=== PATIENT | female | born 1940 | race Caucasian/White ===

== ENCOUNTER 2017-06-23 04:09 | Inpatient (IN) | payer MEDICARE, MEDICAID ==
[~2017-06-23] VITALS: Ht 170.1 cm; Wt 78.0 kg
--- NOTE | ~2017-06-23 | CON ---
[place], [place] REPORT OF CONSULTATION NAME: JAZMIN STERN UNIT #: [id number] ROOM: 420 DOCTOR: CYNTHIA DESAI MD BIRTHDATE: [birth year] DOS: 06/23/2017 PSYCHIATRIC CONSULTATION CHIEF COMPLAINT: "They were trying to kill me; I needed to get out of there." HISTORY OF PRESENT ILLNESS: This is a 76-year-old white female who is a resident of the [facility]. The patient was to be admitted to the [facility], but was sent to the ER for medical clearance and was found to have significant cardiac issues and shortness of breath. The patient reports from psychiatric standpoint that she has resided at the [facility] for the last 3 years, but most recently in the last several months, she has felt that somebody is out to kill her. She feels that they are going to poison her or hurt her in some way. She has not been eating or drinking or taking all of her medications because of this and has been calling 911 frequently. On the date of admission, she did call 911 and EMS did help bring her into the hospital for further evaluation and treatment. The patient reports a lengthy history of schizoaffective disorder versus major depression, recurrent with psychotic features and has had at least 4 other breaks where she has been hospitalized psychiatrically. She follows with Dr. Fitzgerald at that particular facility. MENTAL STATUS: She is alert and oriented with time gaps. Mood does seem to be depressed with anxious overtones and there is a great deal of paranoia present. She is very forthcoming and very engaging and is very much looking to get help. She is open to going to the psychiatric unit. Memory shows some gaps. DIAGNOSIS: Major depression, recurrent with psychotic features. PLAN: I will go ahead and discontinue her Risperdal as this does tend to exacerbate Parkinson's symptoms rather nastily. I will utilize Seroquel 25 mg at bedtime as an antipsychotic, maintain Exelon patch, but plan to increase as needed and as tolerated. I will augment eventually with Namenda. I will add Remeron 15 mg at bedtime as an antidepressant. I may attempt to discontinue her Depakote and her Wellbutrin later. I do believe she is an excellent candidate to go to the [facility] when she is medically stable. CYNTHIA DESAI MD CM:CONSTR:REPORT OF CONSULTATION 06/23/17 0955 interface
[2017-06-23 04:09] VITALS: BP 143/64
[2017-06-23] MEDS ORDERED: AMIODARONE HCL400 MG PO (04:25)
[2017-06-23] MEDS ORDERED: BUDEPRION XL150 MG PO (04:26)
[2017-06-23] MEDS ORDERED: DIGOX125 MCG PO (04:27)
[2017-06-23] MEDS ORDERED: EXELON1 EAC1 T (04:27)
[2017-06-23] MEDS ORDERED: MELATONIN3 MG PO (04:28)
[2017-06-23] MEDS ORDERED: LATANOPROST2.5 ML OP (04:28)
[2017-06-23] MEDS ORDERED: DAILY VALUE1 EACH PO (04:30)
[2017-06-23] MEDS ORDERED: PROSOURCE PLUS887 ML PO (04:31)
[2017-06-23] MEDS ORDERED: RISPERDAL0.25 MG PO ×2 (04:32→04:35)
[2017-06-23] MEDS ORDERED: DIVALPROEX SOD500 MG PO (04:35)
[2017-06-23] MEDS ORDERED: SPIRONOLACTONE50 M1 PO (04:35)
[2017-06-23] MEDS ORDERED: ELIQUIS2.5 M1 PO (04:36)
[2017-06-23] MEDS ORDERED: METOPROLOL TART50 M1 PO (04:36)
[2017-06-23] MEDS ORDERED: NEURONTIN300 MG PO (04:37)
[2017-06-23] MEDS ORDERED: MIDODRINE HCL5 M1 PO (04:37)
[2017-06-23] MEDS ORDERED: SINEMET 25-2501 EACH PO (04:38)
[2017-06-23] MEDS ORDERED: HYDROCODONE-AC1 EAC1 PO (04:39)
[2017-06-23] MEDS ORDERED: ACETAMINOPHEN325 M2 PO (04:40)
[2017-06-23] MEDS ORDERED: ONDANSETRON HYDR4 MG PO (04:40)
[2017-06-23 04:58] LABS: BASO # 0.1 10*3/uL (0.0-0.1); EOS # 0.1 10*3/uL (0.0-0.4); EOS % 0.9 % (1.0-4.0); HEMATOCRIT 39.8 % (37.0-47.0); LYMPH % 10.9 % (27.0-41.0); MEAN CELL VOLUME 101.3 fl (81.0-99.0); MEAN CORPUSCULAR HGB 33.1 pg (27.0-31.0); MEAN CORPUSCULAR HGB CONC 32.7 g/dl (33.0-37.0); MEAN PLATELET VOLUME 11.3 fl (9.6-12.3); MONO # 1.2 10*3/uL (0.1-1.0); MONO % 13.7 % (3.0-9.0); NEUT # 6.1 10*3/uL (2.3-7.9); NEUT % 70.6 % (47.0-73.0); PLATELET COUNT AUTOMATED 258 10*3/uL (130-400); RED BLOOD COUNT 3.93 10*6/uL (4.10-5.10); RED CELL DISTRI WIDTH 13.2 % (0-14.5); WHITE BLOOD COUNT 8.7 10*3/uL (4.8-10.8)
[2017-06-23 05:09] LABS: ACT PARTIAL THROMBO TIME 21.7 SECONDS (20.8-31.5); INTERNATIONAL NORM RATIO 0.9 (2.0-3.5)
[2017-06-23 05:17] LABS: ALBUMIN 2.6 gm/dl (3.1-4.5); ALKALINE PHOSPHATASE 53 U/L (45-117); BUN 13 mg/dl (7-24); CHLORIDE 101 mmol/L (98-107); CREATININE 0.96 mg/dL (0.55-1.02); POTASSIUM 4.8 mmol/L (3.5-5.1); SGOT/AST 26 IU/L (3-35); SGPT/ALT 21 U/L (12-78); SODIUM 137 mmol/L (136-145); TOTAL PROTEIN 6.8 gm/dL (6.4-8.2); TROPONIN I 0.018 ng/ml (<0.045)
[2017-06-23 05:28] LABS: ACETAMINOPHEN (TYLENOL) < 2.0 ug/ml (10-30); DIGOXIN 1.23 ng/ml (0.8-2.0); ETHYL ALCOHOL < 3.0 mg/dl (<3)
[2017-06-23 07:13] LABS: URINE AMPHETAMINES < 1000 (1000ng/ml); URINE BARBITURATES < 200 (200ng/ml); URINE BENZODIAZEPINES < 200 (200ng/ml); URINE CANNABINOIDS (THC) < 50 (50ng/ml); URINE COCAINE < 300 (300ng/ml); URINE METHADONE < 300 (300ng/ml); URINE OPIATES < 300 (300ng/ml)
[2017-06-23 07:14] LABS: URINE PHENCYCLIDINE < 25 (25ng/ml)
[2017-06-23 08:35] VITALS: BP 96/64
[2017-06-23 10:05] LABS: BILIRUBIN NEGATIVE (NEGATIVE); BLOOD NEGATIVE (NEGATIVE); CLARITY CLEAR (CLEAR); COLOR YELLOW (YELLOW); GLUCOSE NEGATIVE (NEGATIVE); KETONE NEGATIVE (NEGATIVE); LEUKO ESTERASE 1+ (NEGATIVE); NITRITE NEGATIVE (NEGATIVE); PH 7.5 (5.0-9.0); UROBILINOGEN 0.2 E.U./dl (0.2-1.0)
[2017-06-23 10:13] LABS: BACTERIA 1+
[2017-06-23 12:00] VITALS: BP 134/54
[2017-06-23 16:00] VITALS: BP 115/61
[2017-06-23 20:03] VITALS: BP 115/52
[2017-06-24 00:12] VITALS: BP 119/60
[2017-06-24 07:06] LABS: BASO # 0.1 10*3/uL (0.0-0.1); BASO % 1.3 % (0.0-1.0); EOS # 0.2 10*3/uL (0.0-0.4); EOS % 2.5 % (1.0-4.0); HEMATOCRIT 40.2 % (37.0-47.0); HEMOGLOBIN 12.8 g/dl (12.0-16.0); LYMPH % 15.7 % (27.0-41.0); MEAN CORPUSCULAR HGB 32.2 pg (27.0-31.0); MEAN CORPUSCULAR HGB CONC 31.8 g/dl (33.0-37.0); MEAN PLATELET VOLUME 11.3 fl (9.6-12.3); MONO # 0.7 10*3/uL (0.1-1.0); MONO % 11.1 % (3.0-9.0); NEUT # 4.2 10*3/uL (2.3-7.9); PLATELET COUNT AUTOMATED 269 10*3/uL (130-400); RED BLOOD COUNT 3.98 10*6/uL (4.10-5.10); RED CELL DISTRI WIDTH 13.5 % (0-14.5); WHITE BLOOD COUNT 6.3 10*3/uL (4.8-10.8)
[2017-06-24 07:25] LABS: ALBUMIN 2.5 gm/dl (3.1-4.5); BUN 18 mg/dl (7-24); CHLORIDE 100 mmol/L (98-107); CHOLESTEROL 116 mg/dL (<200); CREATININE 1.04 mg/dL (0.55-1.02); POTASSIUM 4.1 mmol/L (3.5-5.1); SGOT/AST 25 IU/L (3-35); SODIUM 136 mmol/L (136-145)
[2017-06-24 07:28] LABS: ALKALINE PHOSPHATASE 52 U/L (45-117); HDL CHOLESTEROL 35 mg/dl (40-60); LDL CHOLESTEROL 60 mg/dL (9-159); PHOSPHOROUS 3.1 mg/dL (2.5-4.9); SGPT/ALT 9 U/L (12-78); TOTAL PROTEIN 6.5 gm/dL (6.4-8.2); TRIGLYCERIDES 105 mg/dl (<150); VLDL CHOLESTEROL 21 mg/dL (6-40)
[2017-06-24 08:00] VITALS: BP 107/47
[2017-06-24] MEDS ORDERED: LASIX40 MG PO (11:40)
== END 2017-06-24 14:50 | disposition home health service (06) | DRG 291 ==
LOC: ED 04:09 → 4E 06:34 → EDHOLD 06:34 → 4E 06:34
PROVIDERS: Emergency Medicine Emergency Medical Services; Internal Medicine
DX: I50.43 Acute on chronic combined systolic (congestive) and diastolic (congestive) heart failure (principal); E43 Unspecified severe protein-calorie malnutrition; G20 Parkinson's disease; I48.2 Chronic atrial fibrillation; D75.89 Other specified diseases of blood and blood-forming organs; F02.80 Dementia in other diseases classified elsewhere, unspecified severity, without behavioral disturbance, psychotic disturbance, mood disturbance, and anxiety; F33.3 Major depressive disorder, recurrent, severe with psychotic symptoms; D72.821 Monocytosis (symptomatic); D72.810 Lymphocytopenia; M19.90 Unspecified osteoarthritis, unspecified site; K21.9 Gastro-esophageal reflux disease without esophagitis; F41.9 Anxiety disorder, unspecified; E66.09 Other obesity due to excess calories; Z68.31 Body mass index [BMI] 31.0-31.9, adult; Z88.1 Allergy status to other antibiotic agents; Z88.8 Allergy status to other drugs, medicaments and biological substances; Z79.899 Other long term (current) drug therapy; Z90.11 Acquired absence of right breast and nipple; Z90.49 Acquired absence of other specified parts of digestive tract; Z95.0 Presence of cardiac pacemaker

== ENCOUNTER 2017-06-24 14:26 | Inpatient (IN) | payer MEDICARE, MEDICAID ==
[~2017-06-24] VITALS: Ht 170.1 cm; Wt 77.6 kg
--- NOTE | ~2017-06-24 | PR ---
[place], [place] PROGRESS NOTE NAME: JAZMIN STERN UNIT #: [id number] ROOM: 317 DOCTOR: CYNTHIA DESAI MD BIRTHDATE: [birth year] DOS: 07/02/2017 CHIEF COMPLAINT: "Oh, I do not think I had any, it's is over there, what about that." SUMMARY OF THE VISIT: The patient was interviewed as she was sitting in the dining area. She seemed rather much in the delirium. Her responses to me at times did not make sense and she was also picking at things that were not there and pointing to things that were not there. I do think she is also experiencing an increase in auditory hallucinations. I do believe that this represents an exacerbation of her symptoms based on her UTI and we will continue to monitor this and value the hospitalist's input on treatment of this issue. Nurses will continue to work to get her to be compliant with her psychotropics. We will continue to support and monitor. MENTAL STATUS: She is alert and oriented to self. It is unclear if she even remembers now she is in the hospital. Her responses are short simple and all over the place and she jumps from topic to topic, oftentimes responding to me inappropriately. There is still the presence of both visual and auditory hallucinations. PLAN: At this point is to maintain her current psychotropic regimen, engage in individual and florse milieu activities, returning to the least restrictive environment when stable. CYNTHIA DESAI MD CM:PNTRANS 1 9 CYNTHAI DESAI MD 07/02/17919 interface
--- NOTE | ~2017-06-24 | WRIGHTHP ---
[place], [place] PATIENT HISTORY AND PHYSICAL EXAM NAME: JAZMIN STERN UNIT #: [id number] ROOM: 317 DOCTOR: CYNTHIA DESAI MD BIRTHDATE: [birth year] DOS: 06/25/2017 INITIAL PSYCHIATRIC EVALUATION CHIEF COMPLAINT: "I am here because I was afraid people were going to kill me." HISTORY OF PRESENT ILLNESS: This is a 76-year-old white female who resides at the [facility]. The patient states she has a lengthy history of major depression with psychotic features and has been following with Dr. Fitzgerald for some time. Most recently while at the [facility], she has become increasingly more depressed and paranoid. She believes that staff was plotting against her and are planning to hurt or kill her. Anyone who was walking up behind her, she thinks it is going to hurt her. She was so fearful of being hurt that she repeatedly was calling 911 in order to get assistance. Eventually the EMS brought her for evaluation and she was sent to [place] where she had some medical issues that needed to be addressed, so she was admitted medically. Even when she was on the medical floor, she continued to state that she was hearing music in the ear and that this music signified that something bad was going to happen to her. She is now admitted to the [facility] to rule out further organic factors, to stabilize on medication, to engage in individual and flores milieu activity, returning to the least restrictive environment when psychiatrically stable. PAST MEDICAL HISTORY: Remarkable for osteoarthritis, atrial fibrillation, congestive heart failure, GERD, pacemaker insertion, Parkinson's disease and a lengthy history of depression with psychotic features. The patient reports at least four, if not five psychotic breaks in her lifetime, the first being in the early 1980s. MENTAL STATUS: She is alert and oriented with time gaps. Mood does seem to be rather depressed and anxious. She is very fearful of medication changes and wants everything to be okayed by Dr. Fitzgerald. There is no analia noted. There is that significant paranoia, however. Short term memory has gaps. DIAGNOSIS: Major depression, recurrent with psychotic features. PLAN: I have maintained her Depakote, her Wellbutrin per Dr. Fitzgerald's previous orders. I did add Remeron as an antidepressant to augment the effectiveness of the Wellbutrin. I did discontinue her Risperdal and discussed with her that this is a drug that has a lot of extrapyramidal symptoms and can exacerbate the Parkinson's. I wanted to start her on Seroquel 25 mg at bedtime as an agent that would help break the psychosis without the risk of the extrapyramidal symptoms, however, she is fearful of taking this until she talks to Dr. Fitzgerald. We will attempt to engage her in individual and flores milieu activity with the plan to return to the least restrictive environment when psychiatrically stable. [place], [place] PATIENT HISTORY AND PHYSICAL EXAM NAME: JAZMIN STERN UNIT #: [id number] ROOM: 317 DOCTOR: CYNTHIA DESAI MD BIRTHDATE: [birth year] CYNTHIA DESAI MD CM:HISPHYS:PATIENT HISTORY AND PHYSICAL EXAMINATION [phone] CYNTHIA DESAI MD 06/25/17 1018 interface
--- NOTE | ~2017-06-24 | PR ---
[place], [place] PROGRESS NOTE NAME: JAZMIN STERN UNIT #: [id number] ROOM: 317 DOCTOR: ALEXEY MCBRIDE DO BIRTHDATE: [birth year] DOS: 07/05/2017 CHIEF COMPLAINT: "I'm not taking my medications." SUMMARY OF VISIT: The patient was interviewed in her room in her Cyndi chair after she had just been assisted with bathing. She states that she does not want to take any medication to tell staff, states that she is worried that something bad will happen and she does not want anything to do with her medication. Staff has noticed increase in her behaviors, increase difficulty for daily activities which is toileting and bathing. MENTAL STATUS: She is alert and oriented only to self. Her responses are very short and simple with some inappropriate responses, appears to be continuing to have visual and auditory hallucinations. PLAN: We will continue to monitor the patient at this time, checking her blood work and see if she is improving. We will continue to engage her in individual and group activities, returning to the least restrictive environment when psychiatrically stable. ALEXEY MCBRIDE DO CYNTHIA DESAI MD CM:PNTRANS [phone] ALEXEY MCBRIDE DO 07/05/172316 interface
--- NOTE | ~2017-06-24 | PR ---
[place], [place] PROGRESS NOTE NAME: JAZMIN STERN UNIT #: [id number] ROOM: 317 DOCTOR: ALEXEY MCBRIDE DO BIRTHDATE: [birth year] DOS: 07/06/2017 CHIEF COMPLAINT: "Breakfast was okay." SUMMARY OF VISIT: The patient was interviewed in the dining yousif. She had already completed her breakfast. She states that she feels tired. Per staff, encouraged her to take her medications that she was admitted for reason. Her behavior throughout the day yesterday was reported to be improved. She had taken her medications. She agrees to take her medication at this time. MENTAL STATUS: She is alert and oriented ____. Her responses are short and simple. There does seem to be an improvement in her mood and behavior, still continues to have paranoid thoughts. PLAN: We will continue her current psychotropic medication regimen. I believe her decrease in attitude was responsible for urinary tract infection contributing to her mental status, has continued to improve and be treated. I believe that her attitude with the medications will also increase. We will continue to engage her in individual and group activities with a plan to return her to the least restrictive environment when psychiatrically stable, planning for discharge tomorrow. ALEXEY MCBRIDE DO CYNTHIA DESAI MD CM:PNTRANS [phone] ALEXEY MCBRIDE DO 07/06/172058 interface
--- NOTE | ~2017-06-24 | PR ---
[place], [place] PROGRESS NOTE NAME: JAZMIN STERN UNIT #: [id number] ROOM: 317 DOCTOR: ALEXEY MCBRIDE DO BIRTHDATE: [birth year] DOS: 07/04/2017 CHIEF COMPLAINT: "I'm not taking my medications." SUMMARY OF VISIT: The patient was interviewed in Cyndi chair in a separate room. She agreed that she has not been taking her medications. She has had issues past as she does not know what she is taking with her paranoid and delusional thoughts. Staff has noticed an increase in this behavior with increased difficulty to do activities of daily living such as toileting. MENTAL STATUS: She is alert and oriented to self only. Her responses are very short and simple, with some inappropriate responses. There continues to be presence of visual and auditory hallucinations. PLAN: We will monitor at this point and checking the CBC with diff and a CMP to see if there is a medical reason for her change in mental status. We will continue to engage her in individual and group activities, returning to the least restrictive environment when psychiatrically stable. ALEXEY MCBRIDE DO CYNTHIA DESAI MD CM:PNTRANS [phone] ALEXEY MCBRIDE DO 07/04/17 1255 interface
--- NOTE | ~2017-06-24 | PR ---
[place], [place] PROGRESS NOTE NAME: JAZMIN STERN UNIT #: [id number] ROOM: 317 DOCTOR: CYNTHIA DESAI MD BIRTHDATE: [birth year] DOS: 07/03/2017 CHIEF COMPLAINT: The patient was somnolent and did not speak." SUMMARY OF THE VISIT: The patient was attempted to be interviewed while she was in a Cyndi chair in the dining area. She was sleeping soundly. Multiple attempts to wake her were unsuccessful. Nurses reports she continues to be episodically noncompliant with her medicines and some of this seems to be confusion. The confusion seems to be worsened now that she has got a UTI. Hospitalists are aware of this and are actively treating. MENTAL STATUS: It is limited due to her level of somnolence and inability to cooperate. PLAN: Maintain current psychotropic regimen. Continue to engage in individual and flores milieu activity. Returning to the least restrictive environment when psychiatrically stable. CYNTHIA DESAI MD CM:PNTRANS [id number] CYNTHIA DESAI MD 07/03/17 1213 interface
--- NOTE | ~2017-06-24 | PR ---
[place], [place] PROGRESS NOTE [facility]ERN [id number] UN[facility] #: [id number] ROOM: 317 DOCTOR: CYNTHIA DESAI MD BIRTHDATE: [birth year] DOS: 06/26/2017 CHIEF COMPLAINT: "I slept a little better. I took the medicine." SUMMARY OF THE VISIT: The patient was interviewed as she was eating breakfast. She did report that she took the medicines that I had ordered and did sleep a little better. Of note, she had significant upper extremity tremor. She states that the last time she saw a neurologist for this was many, many years ago and most recently, she has followed up with a nurse practitioner, but even this has been many years and no medication changes regarding her Parkinson's medicines have been made. She was initially hesitant to allow me to adjust her psychotropics, but did allow that to happen last evening. I discussed neurologic medicines and she also agreed to allow me to adjust them if I felt I needed to do so. She continues to still be depressed and still exhibit some mild paranoia. She did tolerate the medications that were new to her yesterday well. MENTAL STATUS: She remains alert and oriented to person, place and very approximate to time. Mood does still seem to be depressed. Affect is still rather constricted. She still is paranoid and fearful of something bad happening to her here and definitely at the [facility]. She does process at times slowly and short term memory has gaps. PLAN: I will maximize out the Exelon patch from 9.5 to 13.3 mg a day. I will go ahead and add low dose Artane to augment the Sinemet to see if we can impact more positively on her parkinsonian symptoms. We will continue to adjust other psychotropics as needed and as tolerated, planning to discharge then to the least restrictive environment when psychiatrically stable. CYNTHIA DESAI MD CM:PNTRANS [id number] CYNTHIA DESAI MD 06/26/17 1039 interface
--- NOTE | ~2017-06-24 | PR ---
[place], [place] PROGRESS NOTE NAME: JAZMIN STERN UNIT #: [id number] ROOM: 317 DOCTOR: ALEXEY MCBRIDE DO BIRTHDATE: [birth year] DOS: 06/29/2017 CHIEF COMPLAINT: "I didn't sleep well." SUMMARY OF THE VISIT: The patient was interviewed in the dining room where she was eating breakfast. She states that she did not sleep well and continues to ask questions about her medications. States that she did not take a new medication that was prescribed to her and she did not know what it was. According to the staff, the patient was irritated and appeared to be more confused while at [facility] and she thought that staff had cheated her out of the second bingo. The patient appears to have moments throughout the day of increased confusion, in that she herself does not seem to recognize. MENTAL STATUS: She remains alert and oriented to person and place and she has times where she will appears to have increased confusion throughout the day. is depressed and she continues to have paranoid thoughts of something bad happening. She has short term memory gaps. PLAN: We will continue her current medications at this time and monitor for sleep as well as tremors. Encouraged staff to explain what medications that she is taking and what those medications were designed for and what they treat. Encouraged her to ask questions throughout the day in order to potentially reduce any confusion that she might have. We will continue to monitor her and engage her in group and individual activities until she can be discharged to the least restrictive environment when psychiatrically stable. ALEXEY MCBRIDE DO CYNTHIA DESAI MD CM:PNTRANS [phone] ALEXEY MCBRIDE DO 06/29/172236 interface
--- NOTE | ~2017-06-24 | PR ---
[place], [place] PROGRESS NOTE NAME: JAZMIN STERN UNIT #: [id number] ROOM: 317 DOCTOR: ALEXEY MCBRIDE DO BIRTHDATE: [birth year] DOS: 06/30/2017 CHIEF COMPLAINT: "I am afraid." SUMMARY OF THE VISIT: The patient was interviewed in the dining room after she had completed her breakfast. She stated that she was afraid. When asked if she was scared of anyone present staff, patients, she responded with no. When asked if there is anything to make her feel comfortable, she also did not respond. According to the staff, she had refused her cardiac medications last night but she did want her medications at 2 in the morning. She appears to have times of increased confusion and paranoia and then periods of awareness. MENTAL STATUS: She remains alert and oriented to person and place but continues with these changes in mental acuity. She is somewhat depressed and continues to have paranoid thoughts of something bad happening to her. PLAN: We will increase her Seroquel to 100 mg at night to help her assist her in sleeping. We will continue her current medications and monitor her sleeping and tremors as well as other side effects. Did encourage staff to explain what medications are for, to come and introduce themselves and try to promote a place and culture of safety. We will continue to monitor and engage her in group and individual activities until she can be discharged to the least restrictive environment when psychiatrically stable. ALEXEY MCBRIDE DO CYNTHIA DESAI MD CM:PNTRANS [id number] ALEXEY MCBRIDE DO 06/30/17 1309 interface
--- NOTE | ~2017-06-24 | PR ---
[place], [place] PROGRESS NOTE NAME: JAZMIN STERN UNIT #: [id number] ROOM: 317 DOCTOR: ALEXEY MCBRIDE DO BIRTHDATE: [birth year] DOS: 06/27/2017 CHIEF COMPLAINT: Continues to shake. SUMMARY OF VISIT: The patient was interviewed when she was eating breakfast in the dining yousif. She states that she slept better but still had a hard time sleeping. Of note, her upper extremity tremor seemed to be improved with her Parkinson. She initially has been in for adjustment of her medications and now has seen some improvement and does agree to continue with any medication changes that would be helpful for her. She continues to be depressed with some mild paranoia and she did tolerate her medications. MENTAL STATUS: She remains alert and oriented to person, place and approximately to time. Mood stable, seems to be depressed. She still has paranoia and she is fearful something bad happening to her. She does have short-term memory gaps. PLAN: We will increase her Seroquel to 50 mg at night to maximize potential benefit with her sleep and increase her Artane to 2 mg 3 times a day. We will continue to adjust other psychotropics as needed and tolerated. ____ did discharge to the least restrictive environment when psychiatrically stable. ALEXEY MCBRIDE DO CYNTHIA DESAI MD CM:PNULICES [phone] ALEXEY MCBRIDE DO 06/27/172241 interface
--- NOTE | ~2017-06-24 | DS ---
[place], [place] DISCHARGE SUMMARY NAME: JAZMIN STERN UNIT #: [id number] ROOM: 317 DOCTOR: CYNTHIA DESAI MD BIRTHDATE: [birth year] DOS: 07/07/2017 CHIEF COMPLAINT: "I am here because I am afraid people were going to kill me." HISTORY OF PRESENT ILLNESS: This is a 76-year-old white female who resides at the [facility]. The patient has a lengthy history of major depression with psychotic features and has been followed by Dr. Fitzgerald for some time. Most recently, she has become increasingly more depressed and despondent with significant paranoia. She believes that the staff is plotting against her and are planning to hurt or kill her. Anytime anyone is walking behind her, she feels that they are coming up behind her to kill her. She has repeatedly called 911 in an order to get assistance. Most recently, EMS brought her to [facility] Emergency Room for evaluation where she this most recent time was found to have a UTI and was subsequently admitted to the medical floor. She continued to though exhibit significant depression with paranoia and once the UTI was cleared, she was then transferred to the [facility] for [facility] treatment. PAST MEDICAL HISTORY: Remarkable for osteoarthritis, atrial fibrillation, congestive heart failure, GERD, pacemaker insertion, Parkinson's disease, and major depression with psychotic features. The patient reports that she has had at least 4 or 5 psychotic breaks in her lifetime with multiple psychiatric admissions. SUMMARY OF THE HOSPITAL COURSE: The patient was admitted to the unit where she was maintained on Depakote and Wellbutrin per Dr. Fitzgerald previous orders. I did discontinue her SSRI and instead started her on Remeron 15 mg at bedtime. Also, I discontinued her Risperdal because I do believe it was exacerbating her parkinsonian symptoms and in lieu of that started her on Seroquel 25 mg at bedtime. I gradually increased this to its maximum dose of 100 mg at bedtime. The patient was dramatically improving until suddenly over the weekend, she became very confused and began exhibiting both visual and auditory hallucinations once again. She was picking at unforeseen objects and talking out of her head. She also started to refuse her medications. At this point in time, I did order a repeat UA, CBC with diff and a CMP and found that her urinary tract infection had returned. Hospitalist did then start treatment on this and once the UTI began to resolve, so did her symptomatology. She had improved sufficiently after several days of treatment of the UTI and maintaining with the medication that she was now compliant once again that she can go back to the [facility] for further treatment and continue under Dr. Fitzgerald care. MENTAL STATUS AT DISCHARGE: The patient is alert and oriented with some time gaps. Mood was strongly trending towards euthymia. Affect was much more appropriate. There was no analia or hypomania. There were no voiced paranoia or delusion. She was happy to be going back to the [facility]. Short-term memory had minor gaps. DIAGNOSES AT DISCHARGE: Major depression, recurrent with psychotic features. PLAN: All of her prescriptions have been printed and will be sent with her. [place], [place] DISCHARGE SUMMARY NAME: JAZMIN STERN UNIT #: [id number] ROOM: 317 DOCTOR: CYNTHIA DESAI MD BIRTHDATE: [birth year] Aftercare will be per Dr. Fitzgerald at the facility. Medically and psychiatrically she is stable. Her biopsychosocial needs will be met by the facility. CYNTHIA DESAI MD CM:IMANI [id number] CYNTHIA DESAI MD 07/07/17 0954 interface
--- NOTE | ~2017-06-24 | PR ---
[place], [place] PROGRESS NOTE NAME: JAZMIN STERN UNIT #: [id number] ROOM: 317 DOCTOR: CYNTHIA DESAI MD BIRTHDATE: [birth year] DOS: 07/01/2017 CHIEF COMPLAINT: The patient was sleeping and unable to be aroused. SUMMARY OF THE VISIT: The patient was resting quietly in bed. I entered her room and called her name multiple times and she did not arouse. Nurses report to me that she did not take her medicine despite multiple attempts, last evening. There does seem to be some paranoia present. There is also some attention-seeking behavior here. MENTAL STATUS: Examination is limited based on her being so somnolent. PLAN: To maintain her current psychotropic regimen. We will continue to support, educate and redirect. I will go ahead and order CMP, CBC with diff just to be certain that she is not organic in anyway exacerbating her baseline paranoia. Engage in individual and flores milieu activities, returning to the least restrictive environment when stable. CYNTHIA DESAI MD CM:PNTRANS 1115 [id number] CYNTHIA DESAI MD 07/01/17 1140 interface
--- NOTE | ~2017-06-24 | PR ---
[place], [place] PROGRESS NOTE NAME: JAZMIN STERN UNIT #: [id number] ROOM: 317 DOCTOR: ALEXEY MCBRIDE DO BIRTHDATE: [birth year] DOS: 06/28/2017 CHIEF COMPLAINT: "I'm fearful of my medication." SUMMARY OF VISIT: The patient was interviewed while she was eating breakfast in the dining yousif. She states that her and she did not eat her breakfast fully. She was fearful when she first woke up and she needed to use the bathroom and she stated that she did not where the the nurses respond. She states that she is afraid of the pill in the medications that she is taking. She states that her shaking has improved and that her fearfulness and fears are decreasing and that her overall activities improving, though she still has an outburst. MENTAL STATUS: She remained alert and oriented to person and place and approximately to time. Her mood is depressed and she is still having paranoia and fearful of bad things happening to her. She has short-term memory gaps. PLAN: We will increase her Artane to 5 mg b.i.d. We will continue her Seroquel and Trintellix in order to maximize potential benefit for her sleep as well as her shaking. We did explain exactly what her medications changes that we made and what the medications were for. We encouraged her if she had any questions throughout the day as she is to you, ask the staff and they are to irritate what each medication is for as this will hopefully reduce her anxiety and fear of taking her medication. She does seem to be responding. No plan to monitor her until she can be discharge the least restriction environment when psychiatrically stable. ALEXEY MCBRIDE DO CYNTHIA DESAI MD CM:PNTRANS [id number] ALEXEY MCBRIDE DO 06/28/172229 interface
[~2017-06-24 14:26] MED LIST: ACETAMINOPHEN325 M2 PO; AMIODARONE HCL400 MG PO; BUDEPRION XL150 MG PO; DAILY VALUE1 EACH PO; DIGOX125 MCG PO; DIVALPROEX SOD500 MG PO; ELIQUIS2.5 M1 PO; EXELON1 EAC1 T; HYDROCODONE-AC1 EAC1 PO; LASIX40 MG PO; LATANOPROST2.5 ML OP; MELATONIN3 MG PO; METOPROLOL TART50 M1 PO; MIDODRINE HCL5 M1 PO; NEURONTIN300 MG PO; ONDANSETRON HYDR4 MG PO; PROSOURCE PLUS887 ML PO; RISPERDAL0.25 MG PO; SINEMET 25-2501 EACH PO; SPIRONOLACTONE50 M1 PO
[2017-06-24 15:15] VITALS: BP 130/57
[2017-06-24 16:03] VITALS: BP 130/57
[2017-06-24 20:00] VITALS: BP 108/58
[2017-06-25 06:33] LABS: HEMATOCRIT 44.4 % (37.0-47.0); HEMOGLOBIN 14.5 g/dl (12.0-16.0); MEAN CELL VOLUME 100.5 fl (81.0-99.0); MEAN CORPUSCULAR HGB 32.8 pg (27.0-31.0); MEAN CORPUSCULAR HGB CONC 32.7 g/dl (33.0-37.0); MEAN PLATELET VOLUME 11.2 fl (9.6-12.3); PLATELET COUNT AUTOMATED 328 10*3/uL (130-400); RED BLOOD COUNT 4.42 10*6/uL (4.10-5.10); RED CELL DISTRI WIDTH 13.3 % (0-14.5); WHITE BLOOD COUNT 8.8 10*3/uL (4.8-10.8)
[2017-06-25 06:46] LABS: ALBUMIN 2.7 gm/dl (3.1-4.5); CREATININE 1.1 mg/dL (0.55-1.02); TOTAL PROTEIN 7.6 gm/dL (6.4-8.2)
[2017-06-25 06:54] LABS: THYROID STIM HORMONE (HS) 4.16 uIU/ml (0.358-4.75)
[2017-06-25 07:19] LABS: BASOPHILS 1 % (0-1); TOTAL CELLS COUNTED 100 #CELLS
[2017-06-25 07:20] LABS: PLATELET SUFFICIENCY NORMAL (NORMAL)
[2017-06-25 07:21] LABS: VACUOLATION OF NEUTROPHILS SLIGHT
[2017-06-25 07:55] VITALS: BP 127/79
[2017-06-25 08:01] LABS: VITAMIN D, 25-HYDROXY 25.8 ng/mL (30-100)
[2017-06-25 20:00] VITALS: BP 113/58
[2017-06-26 07:41] VITALS: BP 120/68
[2017-06-26 07:45] VITALS: BP 120/68
[2017-06-26 20:00] VITALS: BP 120/62
[2017-06-27 09:03] VITALS: BP 108/55
[2017-06-27 20:00] VITALS: BP 142/72
[2017-06-28 08:19] VITALS: BP 134/69
[2017-06-28 08:42] VITALS: BP 134/69
[2017-06-28 13:08] LABS: NEURONTIN (GABAPENTIN) 7.4 ug/mL (4.0-16.0)
[2017-06-28 20:00] VITALS: BP 134/69
[2017-06-29 09:03] VITALS: BP 117/75
[2017-06-29 09:04] VITALS: BP 117/75
[2017-06-29 21:14] VITALS: BP 106/60
[2017-06-30 07:38] VITALS: BP 121/72
[2017-06-30 20:30] VITALS: BP 129/63
[2017-07-01 07:34] VITALS: BP 121/69
[2017-07-01 12:19] LABS: ALBUMIN 2.9 gm/dl (3.1-4.5); CREATININE 1.53 mg/dL (0.55-1.02); POTASSIUM 3.9 mmol/L (3.5-5.1); TOTAL PROTEIN 7.1 gm/dL (6.4-8.2)
[2017-07-01 12:30] LABS: HEMATOCRIT 42.8 % (37.0-47.0); HEMOGLOBIN 14.2 g/dl (12.0-16.0); MEAN CELL VOLUME 100.5 fl (81.0-99.0); MEAN CORPUSCULAR HGB 33.3 pg (27.0-31.0); MEAN CORPUSCULAR HGB CONC 33.2 g/dl (33.0-37.0); MEAN PLATELET VOLUME 12.3 fl (9.6-12.3); PLATELET COUNT AUTOMATED 285 10*3/uL (130-400); RED BLOOD COUNT 4.26 10*6/uL (4.10-5.10); RED CELL DISTRI WIDTH 13.3 % (0-14.5)
[2017-07-01 12:56] LABS: BASOPHILS 1 % (0-1); PLATELET SUFFICIENCY NORMAL (NORMAL); TOTAL CELLS COUNTED 100 #CELLS
[2017-07-01 17:55] LABS: BILIRUBIN NEGATIVE (NEGATIVE); BLOOD 1+ (NEGATIVE); CLARITY CLOUDY (CLEAR); COLOR YELLOW (YELLOW); GLUCOSE NEGATIVE (NEGATIVE); KETONE TRACE (NEGATIVE); LEUKO ESTERASE 3+ (NEGATIVE); NITRITE NEGATIVE (NEGATIVE); PH 5.5 (5.0-9.0); UROBILINOGEN 0.2 E.U./dl (0.2-1.0)
[2017-07-01 18:01] LABS: WBC TNTC wbc/hpf (0-5)
[2017-07-01 19:40] VITALS: BP 107/68
[2017-07-02 07:34] VITALS: BP 110/60
[2017-07-02 11:30] LABS: BASO # 0.1 10*3/uL (0.0-0.1); BASO % 0.6 % (0.0-1.0); EOS # 0.1 10*3/uL (0.0-0.4); EOS % 0.6 % (1.0-4.0); HEMATOCRIT 39.8 % (37.0-47.0); HEMOGLOBIN 13.3 g/dl (12.0-16.0); LYMPH % 10.2 % (27.0-41.0); MEAN CORPUSCULAR HGB 32.8 pg (27.0-31.0); MEAN CORPUSCULAR HGB CONC 33.4 g/dl (33.0-37.0); MEAN PLATELET VOLUME 11.8 fl (9.6-12.3); MONO # 1.2 10*3/uL (0.1-1.0); MONO % 12.7 % (3.0-9.0); NEUT # 6.9 10*3/uL (2.3-7.9); NEUT % 73.1 % (47.0-73.0); PLATELET COUNT AUTOMATED 236 10*3/uL (130-400); RED BLOOD COUNT 4.06 10*6/uL (4.10-5.10); RED CELL DISTRI WIDTH 13.2 % (0-14.5); WHITE BLOOD COUNT 9.4 10*3/uL (4.8-10.8)
[2017-07-02 11:46] LABS: ALBUMIN 2.8 gm/dl (3.1-4.5); CREATININE 1.38 mg/dL (0.55-1.02); POTASSIUM 3.7 mmol/L (3.5-5.1); TOTAL PROTEIN 6.8 gm/dL (6.4-8.2)
[2017-07-02 19:51] VITALS: BP 116/62
[2017-07-03 08:02] VITALS: BP 123/69
[2017-07-03 20:35] VITALS: BP 122/60
[2017-07-04 08:43] LABS: HEMATOCRIT 38.9 % (37.0-47.0); HEMOGLOBIN 13.1 g/dl (12.0-16.0); MEAN CORPUSCULAR HGB 33.3 pg (27.0-31.0); MEAN CORPUSCULAR HGB CONC 33.7 g/dl (33.0-37.0); MEAN PLATELET VOLUME 12.3 fl (9.6-12.3); PLATELET COUNT AUTOMATED 234 10*3/uL (130-400); RED BLOOD COUNT 3.93 10*6/uL (4.10-5.10); RED CELL DISTRI WIDTH 13.3 % (0-14.5); WHITE BLOOD COUNT 7.4 10*3/uL (4.8-10.8)
[2017-07-04 09:07] LABS: PLATELET SUFFICIENCY NORMAL (NORMAL); TOTAL CELLS COUNTED 100 #CELLS
[2017-07-04 09:25] LABS: ALBUMIN 2.6 gm/dl (3.1-4.5); CREATININE 1.56 mg/dL (0.55-1.02); POTASSIUM 3.5 mmol/L (3.5-5.1); TOTAL PROTEIN 6.7 gm/dL (6.4-8.2)
[2017-07-04 11:18] VITALS: BP 112/68
[2017-07-04 19:51] VITALS: BP 123/68
[2017-07-05 09:36] VITALS: BP 112/64
[2017-07-05 20:16] VITALS: BP 108/85
[2017-07-06 08:50] VITALS: BP 102/50; BP 102/60
[2017-07-06 21:22] VITALS: BP 144/55
[2017-07-07 08:07] VITALS: BP 118/76; BP 119/54
[2017-07-07] MEDS ORDERED: BUDEPRION XL150 MG PO (09:07)
[2017-07-07] MEDS ORDERED: MIRTAZAPINE15 M2 PO (09:07)
[2017-07-07] MEDS ORDERED: DIVALPROEX SOD500 MG PO (09:07)
[2017-07-07] MEDS ORDERED: ARTANE5 M1 PO (09:07)
[2017-07-07] MEDS ORDERED: LACTULOSE20 GM/30 M PO (09:07)
[2017-07-07] MEDS ORDERED: QUETIAPINE FUM100 M3 PO (09:07)
[2017-07-07] MEDS ORDERED: EXELON13.3 MG/21 T (09:07)
[2017-07-07] MEDS ORDERED: ASPIRIN CHEWABL81 M1 PO (11:17)
[2017-07-07] MEDS ORDERED: VITAMIN D-32000 UNIT PO (11:17)
[2017-07-07] MEDS ORDERED: LEVAQUIN250 M1 PO (11:33)
== END 2017-07-07 14:45 | DRG 885 ==
LOC: 3N 14:26
PROVIDERS: Internal Medicine; Psychiatry & Neurology Psychiatry
DX: F33.3 Major depressive disorder, recurrent, severe with psychotic symptoms (principal); E43 Unspecified severe protein-calorie malnutrition; G93.41 Metabolic encephalopathy; I48.0 Paroxysmal atrial fibrillation; G20 Parkinson's disease; I50.32 Chronic diastolic (congestive) heart failure; N39.0 Urinary tract infection, site not specified; R40.0 Somnolence; Z68.26 Body mass index [BMI] 26.0-26.9, adult; F41.9 Anxiety disorder, unspecified; K21.9 Gastro-esophageal reflux disease without esophagitis; M19.90 Unspecified osteoarthritis, unspecified site; E55.9 Vitamin D deficiency, unspecified; Z90.11 Acquired absence of right breast and nipple; Z90.49 Acquired absence of other specified parts of digestive tract; Z81.8 Family history of other mental and behavioral disorders; Z88.1 Allergy status to other antibiotic agents; Z88.8 Allergy status to other drugs, medicaments and biological substances; Z95.0 Presence of cardiac pacemaker

== ENCOUNTER 2017-10-26 01:29 | Emergency (ER) | payer MEDICARE, MEDICAID ==
[~2017-10-26] VITALS: Ht 170.1 cm; Wt 90.7 kg
--- NOTE | ~2017-10-26 | EKG ---
[place], [place] ELECTROCARDIOGRAM REPORT NAME: JAZMIN STERN UNIT #: [id number] ROOM: DOCTOR: WESTON DRAFT REPORT BIRTHDATE: [birth year] [facility] Test Date: 2017-10-26 Test Time: 02:05:16 Pat Name: JAZMIN STERN Department: Room: Gender: F Linen Room Attendant: : 1940 Requested By: MADELINE HESS Order Number: [id number] Reading MD: Measurements Intervals [place] Rate: 83 P: 0 NV: 159 QRS: -36 QRSD: 144 T: -29 QT: 472 QTc: 555 Interpretive Statements Ventricular-paced complexes No further rhythm analysis attempted due to paced rhythm Right bundle branch block LVH with secondary repolarization abnormality No previous ECG available for comparison CM:EKGRPT:ELECTROCARDIOGRAM REPORT [id number] [facility] MADELINE HESS MD
[~2017-10-26 01:29] MED LIST changes: +ARTANE5 M1 PO; +ASPIRIN CHEWABL81 M1 PO; +EXELON13.3 MG/21 T; +LACTULOSE20 GM/30 M PO; +LEVAQUIN250 M1 PO; +MIRTAZAPINE15 M2 PO; +QUETIAPINE FUM100 M3 PO; +VITAMIN D-32000 UNIT PO
[2017-10-26 02:06] LABS: BASO # 0.1 10*3/uL (0.0-0.1); BASO % 1.5 % (0.0-1.0); EOS # 0.1 10*3/uL (0.0-0.4); EOS % 3.2 % (1.0-4.0); HEMATOCRIT 39.5 % (37.0-47.0); HEMOGLOBIN 12.4 g/dl (12.0-16.0); LYMPH # 1.1 10*3/uL (1.3-4.4); LYMPH % 26.9 % (27.0-41.0); MEAN CELL VOLUME 101.8 fl (81.0-99.0); MEAN CORPUSCULAR HGB CONC 31.4 g/dl (33.0-37.0); MONO # 0.7 10*3/uL (0.1-1.0); MONO % 17.4 % (3.0-9.0); NEUT % 48.3 % (47.0-73.0); PLATELET COUNT AUTOMATED 158 10*3/uL (130-400); RED BLOOD COUNT 3.88 10*6/uL (4.10-5.10); RED CELL DISTRI WIDTH 13.8 % (0-14.5); WHITE BLOOD COUNT 4.1 10*3/uL (4.8-10.8)
[2017-10-26] MEDS ORDERED: EXELON1 EAC1 TD (02:19)
[2017-10-26] MEDS ORDERED: B-COMPLEX WIT400 MC1 PO (02:20)
[2017-10-26] MEDS ORDERED: IMDUR SA30 MG PO (02:21)
[2017-10-26] MEDS ORDERED: LASIX20 MG PO (02:21)
[2017-10-26] MEDS ORDERED: LATANOPROST2.5 ML OU (02:22)
[2017-10-26] MEDS ORDERED: REMERON15 M2 PO (02:24)
[2017-10-26 02:25] LABS: ALBUMIN 2.9 gm/dl (3.1-4.5); ALKALINE PHOSPHATASE 67 U/L (45-117); BUN 12 mg/dl (7-24); CHLORIDE 105 mmol/L (98-107); POTASSIUM 3.6 mmol/L (3.5-5.1); SGOT/AST 22 IU/L (3-35); SGPT/ALT 11 U/L (12-78); SODIUM 143 mmol/L (136-145); TOTAL PROTEIN 6.3 gm/dL (6.4-8.2)
[2017-10-26 02:26] LABS: ACETAMINOPHEN (TYLENOL) < 2.0 ug/ml (10-30)
[2017-10-26] MEDS ORDERED: SEROQUEL50 MG PO (02:26)
[2017-10-26] MEDS ORDERED: METOPROLOL TART50 M1 PO (02:29)
[2017-10-26] MEDS ORDERED: MIDODRINE HCL5 M1 PO (02:29)
[2017-10-26] MEDS ORDERED: NEURONTIN100 MG PO (02:30)
[2017-10-26] MEDS ORDERED: FLORASTOR250 MG PO (02:30)
[2017-10-26] MEDS ORDERED: SINEMET 25-1001 EACH PO (02:30)
[2017-10-26] MEDS ORDERED: IMODIUM A-1 MG/7.51 PO (02:31)
[2017-10-26] MEDS ORDERED: Zofran4 MG PO (02:32)
[2017-10-26 02:34] LABS: ETHYL ALCOHOL < 3.0 mg/dl (<3)
[2017-10-26 02:51] LABS: BILIRUBIN NEGATIVE (NEGATIVE); BLOOD NEGATIVE (NEGATIVE); CLARITY SL CLOUDY (CLEAR); COLOR YELLOW (YELLOW); GLUCOSE NEGATIVE (NEGATIVE); KETONE TRACE (NEGATIVE); LEUKO ESTERASE NEGATIVE (NEGATIVE); NITRITE NEGATIVE (NEGATIVE)
[2017-10-26 02:59] LABS: URINE AMPHETAMINES < 1000 (1000ng/ml); URINE BARBITURATES < 200 (200ng/ml); URINE BENZODIAZEPINES < 200 (200ng/ml); URINE CANNABINOIDS (THC) < 50 (50ng/ml); URINE COCAINE < 300 (300ng/ml); URINE METHADONE < 300 (300ng/ml); URINE OPIATES < 300 (300ng/ml); URINE PHENCYCLIDINE < 25 (25ng/ml)
[2017-10-26] MEDS ORDERED: MOISTURE BARRI113 GM T (03:42)
== END 2017-10-26 03:54 | disposition home health service (06) ==
LOC: ED 01:29
PROVIDERS: Emergency Medicine Emergency Medical Services
DX: F23 Brief psychotic disorder (principal); F32.9 Major depressive disorder, single episode, unspecified; G20 Parkinson's disease; F25.9 Schizoaffective disorder, unspecified; I48.91 Unspecified atrial fibrillation; M19.90 Unspecified osteoarthritis, unspecified site; K21.9 Gastro-esophageal reflux disease without esophagitis; I11.0 Hypertensive heart disease with heart failure; I50.9 Heart failure, unspecified; G62.9 Polyneuropathy, unspecified; Z88.1 Allergy status to other antibiotic agents; Z88.6 Allergy status to analgesic agent; Z79.899 Other long term (current) drug therapy

== ENCOUNTER 2017-10-26 03:17 | Inpatient (IN) | payer MEDICARE, MEDICAID ==
[~2017-10-26] VITALS: Ht 152.4 cm; Wt 90.7 kg
--- NOTE | ~2017-10-26 | PR ---
[place], [place] PROGRESS [id number] UN[facility] #: [id number] ROOM: 315 DOCTOR: MANJU LÓPEZ MD BIRTHDATE: [birth year] DOS: 10/27/2017 PSYCHIATRIC PROGRESS NOTE SUBJECTIVE: The patient seen and spoke with nursing staff. Per staff, the patient was refused all of his medication last night, took some in the morning, but still paranoid. The patient was in the Cyndi chair in the dining area. At this time, also she did not take all of her medications. She refused the Remeron and the Abilify. When I asked her that why she is not taking them, she did not tell me and when I asked to take it, she did not take it also. She seems to be guarded. MENTAL STATUS EXAMINATION: Pleasant, cooperative. Described her mood as "I don't know." Affect was flat, constricted. Thought process goal directed. No flight of ideas, loosening of association. She denied auditory or visual hallucination. She is still delusional and paranoid. She denies suicidal ideation, intent or plan. She also denied homicidal ideation, intent or plan. Insight and judgment was impaired. PLAN: 1. Continue current medication and care. 2. Continue redirection. 3. Supportive care. MANJU LÓPEZ MD CM:PNTRANS 173 MANJU LÓPEZ MD 10/28/17 173 interface
--- NOTE | ~2017-10-26 | PR ---
[place], [place] PROGRESS NOTE NAME: JAZMIN STERN UNIT #: [id number] ROOM: 315 DOCTOR: CYNTHIA DESAI MD BIRTHDATE: [birth year] DOS: 10/31/2017 CHIEF COMPLAINT: "I am feeling better. I think I am ready to go back to the [facility]." SUMMARY OF THE VISIT: The patient was interviewed as she was completing her breakfast. She smiled readily as I approached and voiced no complaints, stating that she did sleep better last night with a new medicine. She voiced that she is feeling better, less depressed, feels like she is ready to go back and does not fear going back to the [facility]. They take care of me, she states and everything is good there. MENTAL STATUS: The patient is alert and oriented to person, place and very approximate to time. Mood does seem to be euthymic. Affect appropriate. No analia, hypomania or psychosis is noted. Short term memory has some gaps, but otherwise she is intact. PLAN: I will check a valproic acid level in the a.m. and proceed with discharge back to the [facility] when medically and psychiatrically stable. CYNTHIA DESAI MD CM:PNTRANS 3 4 CYNTHIA DESAI MD 10/31/1723 interface
--- NOTE | ~2017-10-26 | PR ---
[place], [place] PROGRESS NOTE NAME: JAZMIN STERN UNIT #: [id number] ROOM: 315 DOCTOR: CYNTHIA DESAI MD BIRTHDATE: [birth year] DOS: 10/30/2017 CHIEF COMPLAINT: "I am feeling better. I am just is not sleeping well." SUMMARY OF THE VISIT: The patient was interviewed as she was sitting in the dining area next to several female peers. She engaged readily in conversation with me reporting that she had a good weekend and that her mood does seem to be better. She did report that she does feel better. The only issue that she is currently facing right now is a disturbed sleep. She notes both difficulty falling asleep and maintaining sleep. Otherwise, she notes no other issues. MENTAL STATUS: She is alert and oriented with time gaps. Mood does seem to be trending towards euthymia. Affect is more appropriate. There is no analia, hypomania or psychosis. She engages readily in conversation and does exhibit fairly decent memory with some mild time gaps for short term events. PLAN: I will augment her current regimen with Rozerem 8 mg at bedtime as a non-addicting sleep aid. Engage in individual and flores milieu activity, returning to the least restrictive environment when stable. CYNTHIA DESAI MD CM:PNTRANS [id number] CYNTHIA DESAI MD 10/30/17 1859 interface
--- NOTE | ~2017-10-26 | PR ---
[place], [place] PROGRESS NOTE NAME: JAZMIN STERN UNIT #: [id number] ROOM: 315 DOCTOR: MANJU LÓPEZ MD BIRTHDATE: [birth year] DOS: 10/29/2017 SUBJECTIVE: The patient seen and spoke with the staff. Per staff, the patient is doing good. Took all of her medication. No behavior problems or issues. Slept well last night. The patient was pleasant and cooperative. She looks much calmer. She was in her room on a wheelchair. She reports feeling better. She said that she is taking her medication regularly and did not have any side effect from the medication. MENTAL STATUS EXAMINATION: The patient was pleasant and cooperative. Describes her mood as "better." Affect, mood congruent. She denied auditory or visual hallucination. No delusion or paranoia noted. She denies suicidal ideation, intent or plan. She also denied any homicidal ideation, intent or plan. PLAN: 1. Continue current medication and care. 2. Continue redirection. 3. Supportive care. 4. Encourage activity and groups. MANJU LÓPEZ MD CM:PNTRANS [id number] MANJU LÓPEZ MD 10/30/17 0439 interface
--- NOTE | ~2017-10-26 | WRIGHTHP ---
[place], [place] PATIENT HISTORY AND PHYSICAL EXAM NAME: JAZMIN STERN UNIT #: [id number] ROOM: 315 DOCTOR: CYNTHIA DESAI MD BIRTHDATE: [birth year] DOS: 10/26/2017 INITIAL PSYCHIATRIC EVALUATION CHIEF COMPLAINT: "I am here because I am afraid they were going to hurt me." HISTORY OF PRESENT ILLNESS: This is a 76-year-old white female who resides at the [facility] in the [facility]. She presented to the [facility] stating that she is fearful that the employees, they are going to hurt her in some ways and has been calling 911 or calling the police to come get her to save her from . The patient feels that her sister who had lived at the [facility] because specifically the staff there hastened her and did not take care of her adequately. She is fearful that the same will happen to her and has been increasingly depressed and paranoid. She has been refusing ADLs and refusing meds and has been very noncompliant with care. She is admitted now to rule out organic factors, to stabilize on medication, to engage in individual and flores milieu activity, returning to the least restrictive environment when psychiatrically stable. PAST MEDICAL HISTORY: Remarkable for osteoarthritis, atrial fibrillation, congestive heart failure, GERD, obesity, pacemaker insertion, Parkinson's disease, severe protein-calorie malnutrition, vitamin D deficiency and a history of schizoaffective disorder. ALLERGIES: The patient lists allergies TO AMOXICILLIN, CLAVULANIC ACID, CODEINE, MEPERIDINE. SOCIAL HISTORY: She does not drink alcohol, smoke cigarettes or use illicit drugs. She does not use smokeless tobacco products either. STRENGTHS: Good verbal skills, ambulatory. WEAKNESSES: Long-term psychiatric history and poor coping skills. MENTAL STATUS: Upon admission, she is alert and oriented to person, place and very approximate to time. She is well dressed, well-kept and looks her stated age. She engages readily in conversation. She is very paranoid and fearful. There are also elements of depression. Mood does seem to be depressed. Affect is flat and blunted with anxious overtones. There is no symptom suggestive of analia or hypomania. Her speech rate and pattern are somewhat disjointed and mildly circumstantial. Short-term memory has mild gaps, otherwise she is intact. DIAGNOSIS: Schizoaffective disorder. PLAN: I will go ahead and increase her Remeron from 7.5 mg at night to 15 bringing it into at least a therapeutic range. I will add Abilify 10 mg at bedtime to augment the effectiveness of the antidepressant and also decrease some of her paranoia. This should have minimal interaction with her Parkinson's disease. I will also bring her Exelon patch from 9.5 up to its therapeutic max [place], [place] PATIENT HISTORY AND PHYSICAL EXAM [facility]: [id number] UN[facility] #: [id number] ROOM: [facility] DOCTOR: CYNTHIA DESAI MD BIRTHDATE: [birth year] of 13.3. We will engage in individual and flores milieu activity. I have discussed the case at length with social worker delinquency prevention about the possibility of alternative placement and they will look into this as an option and present her with her options. We will discharge then to the least restrictive environment when psychiatrically stable. CYNTHIA DESAI MD CM:HISPHYS:PATIENT HISTORY AND PHYSICAL EXAMINATION [id number] CYNTHIA DESAI MD 10/26/17 1220 interface
--- NOTE | ~2017-10-26 | PR ---
[place], [place] PROGRESS NOTE NAME: JAZMIN STERN UNIT #: [id number] ROOM: 315 DOCTOR: MANJU LÓPEZ MD BIRTHDATE: [birth year] DOS: 10/28/2017 PSYCHIATRIC PROGRESS NOTE SUBJECTIVE: The patient seen and spoke with the nursing staff. Per staff, the patient is irritable, refused his some medication last night, but took medication this morning. Per staff, the patient is still very labile and irritable. The patient was in the day area, seems irritable and seems to me that not interested in talking. She said that she is doing good and then did not answer any of the questions. MENTAL STATUS EXAMINATION: Irritable and angry. Described her mood as "good." Affect was labile. Thought process goal directed. No flight of ideas, loosening of association. She denied auditory or visual hallucination. No delusion or paranoia noted. She denied suicidal ideation, intent or plan. She also denied homicidal ideation, intent or plan. Insight and judgment was impaired. PLAN: 1. Continue current medication and care. 2. Continue redirection. 3. Supportive care. 4. Encourage activity and groups. MANJU LÓPEZ MD CM:PNTRANS [id number] MANJU LÓPEZ MD 10/29/17 1257 interface
[~2017-10-26 03:17] MED LIST changes: +B-COMPLEX WIT400 MC1 PO; +EXELON1 EAC1 TD; +FLORASTOR250 MG PO; +IMDUR SA30 MG PO; +IMODIUM A-1 MG/7.51 PO; +LASIX20 MG PO; +LATANOPROST2.5 ML OU; +NEURONTIN100 MG PO; +REMERON15 M2 PO; +SEROQUEL50 MG PO; +SINEMET 25-1001 EACH PO; +Zofran4 MG PO
[2017-10-26] MEDS ORDERED: MOISTURE BARRI113 GM T (03:42)
[2017-10-26 03:57] VITALS: BP 107/80
[2017-10-26 04:25] LABS: THYROID STIM HORMONE (HS) 4.97 uIU/ml (0.358-4.75)
[2017-10-26 04:43] VITALS: BP 107/80
[2017-10-26 07:38] LABS: VITAMIN D, 25-HYDROXY 19.9 ng/mL (30-100)
[2017-10-26 07:39] VITALS: BP 136/70
[2017-10-26 20:00] VITALS: BP 123/63
[2017-10-27 07:41] VITALS: BP 129/72
[2017-10-27 20:07] VITALS: BP 144/64
[2017-10-28 07:49] VITALS: BP 142/65
[2017-10-28 19:50] VITALS: BP 107/70
[2017-10-29 07:53] VITALS: BP 135/73
[2017-10-29 19:58] VITALS: BP 142/82
[2017-10-30 07:34] VITALS: BP 138/70
[2017-10-30 20:00] VITALS: BP 114/54
[2017-10-31 08:12] VITALS: BP 140/62
[2017-10-31 19:54] VITALS: BP 123/73
[2017-11-01 08:01] VITALS: BP 144/91
== END 2017-11-01 17:00 | disposition other institution (70) | DRG 885 ==
LOC: 3N 03:17
PROVIDERS: Psychiatry & Neurology Psychiatry
DX: F25.9 Schizoaffective disorder, unspecified (principal); E43 Unspecified severe protein-calorie malnutrition; G20 Parkinson's disease; D70.9 Neutropenia, unspecified; D75.89 Other specified diseases of blood and blood-forming organs; I50.32 Chronic diastolic (congestive) heart failure; I48.0 Paroxysmal atrial fibrillation; F23 Brief psychotic disorder; F33.9 Major depressive disorder, recurrent, unspecified; L02.612 Cutaneous abscess of left foot; M19.90 Unspecified osteoarthritis, unspecified site; K21.9 Gastro-esophageal reflux disease without esophagitis; F41.9 Anxiety disorder, unspecified; E66.01 Morbid (severe) obesity due to excess calories; R94.6 Abnormal results of thyroid function studies; E55.9 Vitamin D deficiency, unspecified; M79.81 Nontraumatic hematoma of soft tissue; Z87.440 Personal history of urinary (tract) infections; Z90.49 Acquired absence of other specified parts of digestive tract; Z91.19 Patient's noncompliance with other medical treatment and regimen; Z95.0 Presence of cardiac pacemaker; Z88.8 Allergy status to other drugs, medicaments and biological substances; Z88.6 Allergy status to analgesic agent; Z90.11 Acquired absence of right breast and nipple; Z79.899 Other long term (current) drug therapy; Z79.82 Long term (current) use of aspirin; Z68.39 Body mass index [BMI] 39.0-39.9, adult